=== PATIENT | male | born 1950 | race Caucasian/White ===

== ENCOUNTER 2024-03-12 13:55 | Day surgery (SDC) | payer OTHER ==
[~2024-03-12] VITALS: Ht 185.4 cm; Wt 148.7 kg
[~2024-03-12 13:55] MED LIST: LR 1,000 ML IV SCH; Lidocaine PF 1% (10 MG/ML) 5 ML VIAL ONE; Ondansetron 4 MG/2 ML VIAL IV PRN
[2024-03-12] MEDS ORDERED: ULTRAM 50MG TAB50 MG PO (14:41)
[2024-03-12] MEDS ORDERED: HCTZ12.5TAB PO (14:41)
[2024-03-12] MEDS ORDERED: COZAAR 25MG25 MG/TAB PO (14:41)
[2024-03-12] MEDS ORDERED: KLOR-CON SPRIN10 MEQ PO (14:41)
[2024-03-12] MEDS ORDERED: SYNTHROID 0.0.025 MG PO (14:42)
[2024-03-12] MEDS ORDERED: PRILOTC (14:42)
[2024-03-12 14:46] VITALS: BP 139/68; PULSE 48; TEMP 98.3
[2024-03-12 15:30] VITALS: BP 128/79; PULSE 43
[2024-03-12 15:45] VITALS: BP 130/75; PULSE 45
[2024-03-12 16:00] VITALS: BP 132/80; PULSE 45
[2024-03-12 17:30] VITALS: BP 135/85; PULSE 42
[2024-03-12 18:00] VITALS: BP 129/79; PULSE 45
--- NOTE | 2024-03-12 18:11 | NUR ---
1530 PATIENT RETURNS TO [facility] VIA CART. PT AWAKE AND ALERT. RESPIRATIONS UNLABORED. AMBULATED TO RECLINER CHAIR WITH 2:1 SBA. PT DENIES NAUSEA OR ABDOMINAL PAIN. HOOKED UP TO MONITOR AND VS OBTAINED. CALL LIGHT AT SIDE AND PRESENT. 1545 PATIENT TOLERATING WATER AND APPLESAUCE WITHOUT NAUSEA OR DIFFICULTY SWALLOWING. 1555 IN ROOM SPEAKING WITH PATIENT. 1610 D/C INSTRUCTIONS REVIEWED WITH PATIENT. PT VERBALIZED UNDERSTANDING AND A COPY OF INSTRUCTIONS PROVIDED IN D/C FOLDER. 1630 PATIENT TRANSPORTED TO RADIOLOGY FOR BARIUM ENEMA STUDY. 1730 PATIENT TRANSPORTED TO ENDOSCOPY FOR DISCHARGE. VSS AND WILL CONTINUE TO MONITOR PATIENT'S READINESS FOR DISCHARGE. 1805 PATIENT DRESSES SELF. 1815 PATIENT DISCHARGED FROM UNIT VIA W/C TO A PERSONAL VEHICLE. PT LEFT HOSPITAL IN STABLE CONDITION.
== END 2024-03-12 18:15 | disposition home or self-care (01) ==
LOC: SDCO 13:55
DX: Z12.11 Encounter for screening for malignant neoplasm of colon (principal); K57.30 Diverticulosis of large intestine without perforation or abscess without bleeding; K64.0 First degree hemorrhoids; K21.9 Gastro-esophageal reflux disease without esophagitis; G47.33 Obstructive sleep apnea (adult) (pediatric); Z85.850 Personal history of malignant neoplasm of thyroid; Z87.891 Personal history of nicotine dependence; Z86.010 Personal history of colon polyps
CPT/HCPCS: J2704; J7120